=== PATIENT | female | born 1965 ===

== ENCOUNTER 2019-07-03 21:23 | Emergency (ER) | payer MEDICAID ==
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
--- NOTE | 2019-07-03 22:55 | CR ---
INDICATION: Shortness of breath TECHNIQUE: Chest 1 view. COMPARISON: None FINDINGS: Cardiovascular and mediastinum: Heart size and vasculature are normal in caliber and appearance. Mediastinum is within normal limits. Lungs and pleural space: Lungs are clear. No sign of infiltrate. 6 millimeter probable calcified granuloma right upper lobe. No sign of pleural effusion. No pneumothorax. Bones and soft tissues: No significant findings. IMPRESSION: No acute pulmonary or cardiac abnormalities. 6 millimeter probable calcified granuloma right upper lobe. Dictated by Len Luna MD @ 07/03/2019 10:53:14 PM Dictated by: Len Luna MD @ 07/03/2019 22:53:21 (Electronically Signed)
[2019-07-03 23:00] LABS: BLOOD UREA NITROGEN,BUN 18 mg/dL (7.0-18.0); CARBON DIOXIDE,CO2 26.5 mmol/L (21.0-32.0); CHLORIDE,CL 108 mmol/L (98-107); GLUCOSE RANDOM 104 mg/dL (74-106); POTASSIUM,K 4.2 mmol/L (3.5-5.1); SODIUM,NA 144 mmol/L (136-145)
== END 2019-07-04 00:10 | disposition home or self-care (01) ==
LOC: MW.ED 21:23
DX: M25.462 Effusion, left knee (principal); M25.461 Effusion, right knee; I10 Essential (primary) hypertension; Z88.8 Allergy status to other drugs, medicaments and biological substances
CPT/HCPCS: 36415; 71045; 71045-26; 73110-26-LT; 73110-LT; 80053; 81003; 81025; 83880; 84484; 85025; 93005; 99283; 99284-25